=== PATIENT | male | born 1980 | race Caucasian/White ===

== ENCOUNTER 2016-10-10 18:27 | Emergency (ER) | payer BC ==
[~2016-10-10] VITALS: Ht 187.9 cm; Wt 86.2 kg
[~2016-10-10 18:27] MED LIST: HYDROCODONE BIT1 T11 PO; MOTRIN800 MG PO; VYVANSE40 MG PO
[2016-10-10] MEDS ORDERED: CEFADROXIL500 M1 PO (18:41)
== END 2016-10-10 19:11 | disposition home or self-care (01) ==
LOC: ED 18:27
DX: S41.112A Laceration without foreign body of left upper arm, initial encounter (principal); W27.8XXA Contact with other nonpowered hand tool, initial encounter; Y93.89 Activity, other specified; Y92.9 Unspecified place or not applicable; Y99.9 Unspecified external cause status

== ENCOUNTER 2018-03-16 18:32 | Emergency (ER) | payer BC ==
[~2018-03-16] VITALS: Ht 187.9 cm; Wt 86.2 kg
--- NOTE | ~2018-03-16 | EKG ---
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
--- NOTE | ~2018-03-16 | EKG ---
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
[~2018-03-16 18:32] MED LIST changes: +CEFADROXIL500 M1 PO
[2018-03-16 18:41] LABS: BASO % 0.4 % (0.0-1.0); EOS # 0.1 10*3/uL (0.0-0.4); HEMATOCRIT 46.5 % (42.0-52.0); LYMPH # 3.6 10*3/uL (1.3-4.4); LYMPH % 35.3 % (27.0-41.0); MEAN CELL VOLUME 85.3 fl (80.0-94.0); MEAN CORPUSCULAR HGB 27.5 pg (27.0-31.0); MEAN CORPUSCULAR HGB CONC 32.3 g/dl (33.0-37.0); MEAN PLATELET VOLUME 9.7 fl (9.6-12.3); MONO # 0.5 10*3/uL (0.1-1.0); NEUT % 57.9 % (47.0-73.0); PLATELET COUNT AUTOMATED 268 10*3/uL (130-400); RED BLOOD COUNT 5.45 10*6/uL (4.50-5.90); WHITE BLOOD COUNT 10.3 10*3/uL (4.8-10.8)
[2018-03-16 18:53] LABS: ACT PARTIAL THROMBO TIME 25.4 SECONDS (20.8-31.5)
[2018-03-16 18:58] LABS: ALBUMIN 4.2 gm/dl (3.1-4.5); ALKALINE PHOSPHATASE 75 U/L (45-117); BUN 14 mg/dl (7-24); CHLORIDE 104 mmol/L (98-107); CREATININE 1.07 mg/dL (0.70-1.30); POTASSIUM 4.2 mmol/L (3.5-5.1); SGOT/AST 25 IU/L (3-35); SGPT/ALT 30 U/L (12-78); SODIUM 140 mmol/L (136-145); TOTAL PROTEIN 7.5 gm/dL (6.4-8.2)
[2018-03-16 18:59] LABS: TROPONIN I < 0.015 ng/ml (<0.045)
[2018-03-16] MEDS ORDERED: CYCLOBENZAPRINE10 MG PO (22:09)
== END 2018-03-16 22:15 | disposition home or self-care (01) ==
LOC: ED 18:32
PROVIDERS: Emergency Medicine
DX: M54.12 Radiculopathy, cervical region (principal); R07.89 Other chest pain; R06.02 Shortness of breath; M25.512 Pain in left shoulder; Z79.899 Other long term (current) drug therapy

== ENCOUNTER → 2018-05-16 | Outpatient (CLI) | payer BC ==
[~2018-05-16] MED LIST changes: +CYCLOBENZAPRINE10 MG PO
--- NOTE | ~2018-05-16 | PR ---
[place], [place] PROGRESS NOTE [id number] UNIT #: [id number] ROOM: DOCTOR: LILLIE BAIG MD,CRISTEL BIRTHDATE: [birth year] DOS: 07/07/2018 PSYCHIATRIC PROGRESS NOTE SUBJECTIVE: The patient was noted comfortable at this time, resting on the bed. He has not been reported any symptoms of fever or chills. Still noted the cough, which remained nonproductive with significant pain in the right chest. Pain management has been continued with use of the morphine sulphate. The patient has not been noted any symptoms of hemoptysis. There were no symptoms of abdominal pain. Denies symptoms of headache or diplopia, nausea, vomiting, diarrhea. The patient denies any pain of the lower extremities. The remaining systems were reviewed with the patient, they were noted all negative. OBJECTIVE: VITAL SIGNS: For the patient normal temperature, respiratory rate 20, heart rate 90, blood pressure 114/72, pulse oxygen saturation on room air was 96% saturation recorded. HEENT: Head was atraumatic, mild obesity. NECK: Supple. CARDIOVASCULAR: S1, S2 audible. LUNGS: The patient with decreased breath sounds in the right lower chest. ABDOMEN: Soft, nontender. Bowel sounds present. EXTREMITIES: The patient was noted without any acute edema, clubbing or cyanosis. MUSCULOSKELETAL: The patient was noted without any acute deformities. CENTRAL NERVOUS SYSTEM: The patient's cranial nerves 2-12 intact. LABORATORY DATA: The BMP that was done this morning, normal BUN and creatinine. The other electrolytes were normal. PT/PTT was noted as normal. CBC that was done this morning was noted as normal WBC count and platelet count. IMPRESSION: The patient was noted with a large mass lesion in the right lower lobe, elevation of the right hemidiaphragm, rule out diaphragmatic paralysis on the right side. Past history of nicotine use without any active use for the past several years. PLAN OF MANAGEMENT: Continuation of the current plan of management. Bronchoscopy will be rescheduled, will be done tomorrow because of scheduling conflict. Ordered the fluoroscopy of the right diaphragm to rule out diaphragmatic paralysis. Other therapy, plan of management to be continued as in progress. Usual care. [place], [place] PROGRESS NOTE NAME: JANNA DENNY UNIT #: [id number] ROOM: DOCTOR: CRISTEL MORAN MD BIRTHDATE: [birth year] CRISTEL MOREIRA MD CM:PNTRANS [id number] CRISTEL BAIG MD 07/08/18 1259 BARBARA REIS.R
== END | disposition home or self-care (01) ==
LOC: ORTHO 02:16
DX: M43.22 Fusion of spine, cervical region (principal); M50.321 Other cervical disc degeneration at C4-C5 level; M25.512 Pain in left shoulder; M25.522 Pain in left elbow